=== PATIENT | female | born 1950 | race Caucasian/White ===

== ENCOUNTER 2017-12-02 11:22 | Emergency (ER) | payer OTHER, MEDICARE ==
[2017-12-02 11:26] VITALS: TEMP 36.4
[2017-12-02] MEDS ORDERED: HYDROCODONE/ACETAMIN 5/325MG TAB PO STA (11:50)
[2017-12-02] MEDS ORDERED: DVN80125 PO (12:18)
[2017-12-02] MEDS ORDERED: [UNRECOGNIZED DRUG - CODE] OPB (12:18)
[2017-12-02] MEDS ORDERED: [UNRECOGNIZED DRUG - CODE] OPB (12:18)
--- NOTE | 2017-12-02 12:39 | DIAGNOSTIC IMAGING REPORT ---
L SHOULDER MIN 2 VIEWS ROUTINE CLINICAL HISTORY: Left shoulder pain status post trauma COMPARISON: None. DISCUSSION: There is acute proximal humeral fracture with involvement of the greater tuberosity. There is no dislocation IMPRESSION: Acute fracture involving the greater tuberosity. Electronically signed by: Wu Tavarez M.D. 12/02/2017 12:38 PM Dictated Date/Time: 12/02/2017 12:37 PM
--- NOTE | 2017-12-02 12:40 | DIAGNOSTIC IMAGING REPORT ---
L HUMERUS MIN 2 VIEWS ROUTINE CLINICAL HISTORY: Left upper arm pain status post trauma COMPARISON: None. DISCUSSION: There is no dislocation. There is a longitudinal humeral head fracture with involvement of the greater tuberosity. IMPRESSION: Longitudinal humeral head fracture involving the greater tuberosity Electronically signed by: Wu Tavarez M.D. 12/02/2017 12:39 PM Dictated Date/Time: 12/02/2017 12:38 PM
--- NOTE | 2017-12-02 12:41 | DIAGNOSTIC IMAGING REPORT ---
L ELBOW MIN 3 VIEWS ROUTINE CLINICAL HISTORY: Left elbow pain status post trauma COMPARISON: None. DISCUSSION: The fat pads are not displaced. No fractures or dislocations are visualized. IMPRESSION: No fractures or dislocations are visualized. Electronically signed by: Wu Tavarez M.D. 12/02/2017 12:39 PM Dictated Date/Time: 12/02/2017 12:39 PM
--- NOTE | 2017-12-02 13:17 | EMERGENCY ROOM VISIT NOTE ---
ED Visit Note First contact with patient: 11:35 CHIEF COMPLAINT: Shoulder pain HISTORY OF PRESENT ILLNESS: This 67-year-old female patient presents to the emergency department by private vehicle complaining of pain in the left upper arm and shoulder after a fall earlier today. Patient states that she tripped on a curb, and fell around 10 AM this morning, onto her left arm and shoulder. She has had pain with movement of the arm, and there is limitation of motion of the arm because of the pain. The pain is moderate, constant and increases with motion of the hand and arm. The patient states the pain is throbbing and 9/10. The patient has taken no medications for relief of the pain. No previous significant previous shoulder disease or injury. No numbness or tingling. She denies any neck pain or back pain. No chest pain or shortness of breath. No abdominal pain or nausea/vomiting. No cough. Tetanus is up-to-date. She is right-hand dominant. She does not take any blood thinners. She denies hitting her head or loss of consciousness. She has abrasions to her left elbow and left hand, no active bleeding. She denies any pain in the elbow or wrist joints , all of the pain is in her left shoulder. REVIEW OF SYSTEMS: A 6 system review of systems was performed with positives and pertinent negatives in the HPI. ALLERGIES: Reviewed in chart. MEDICATIONS: Reviewed in chart. PMH: Hypertension SOCIAL HISTORY: Lives at home. Denies tobacco use. PHYSICAL EXAM: Vital Signs: Reviewed nurse's notes, vital signs stable. GENERAL : Pleasant and cooperative, in no acute distress, but appears to be in pain, well-developed, well-nourished. MUSCULOSKELETAL: There is no deformity in the contour of the left shoulder and there are no obdulia deformities noted. There is no sulcus sign. There is tenderness over the proximal humerus at the shoulder joints. The patient's range of motion is limited due to pain. Supraspinatus strength 5/5. There is no clavicle tenderness. No tenderness of the humerus, elbow, wrist, or hand. [employer] Guid[employer]ician strength 5/5. Radial pulse 2+. NECK: No tenderness to palpation over the cervical spine. Full range of motion without pain.. HEART : Regular rate and rhythm without murmurs gallops or rubs. LUNGS: Clear to auscultation bilaterally without wheezes, rales or rhonchi. No accessory muscle use. No retractions. NEURO: The patient is alert and oriented to person, place, and time. Normal sensation to light and sharp touch. Capillary refill less than 2 seconds. IMAGING: L HUMERUS MIN 2 VIEWS ROUTINE CLINICAL HISTORY: Left upper arm pain status post trauma COMPARISON: None. DISCUSSION: There is no dislocation. There is a longitudinal humeral head fracture with involvement of the greater tuberosity. IMPRESSION: Longitudinal humeral head fracture involving the greater tuberosity ----- L SHOULDER MIN 2 VIEWS ROUTINE CLINICAL HISTORY: Left shoulder pain status post trauma COMPARISON: None. DISCUSSION: There is acute proximal humeral fracture with involvement of the greater tuberosity. There is no dislocation IMPRESSION: Acute fracture involving the greater tuberosity. ----- L ELBOW MIN 3 VIEWS ROUTINE CLINICAL HISTORY: Left elbow pain status post trauma COMPARISON: None. DISCUSSION: The fat pads are not displaced. No fractures or dislocations are visualized. IMPRESSION: No fractures or dislocations are visualized. EMERGENCY DEPARTMENT COURSE: I examined the patient. Differential diagnosis includes contusion, abrasion, sprain/strain, fracture, dislocation, among others. Patient was given [place] for pain and an ice pack. An X-ray of the left elbow, humerus, and shoulder was reviewed by myself and radiologist and shows acute fracture of the humeral head. Patient was placed in an arm sling under my supervision, neurovascularly intact upon recheck. Patient states that her pain is improved after the [place], Rx for [place] was sent to pharmacy for further pain management at home. Patient was educated on continued care for her fracture, and was encouraged to follow-up with the orthopedic surgeon. She was also given strict return precautions should her symptoms worsen, she verbalized understanding. Patient was discharged home in stable condition and ambulatory. Patient was discussed with Dr. Sheppard, who agrees with my assessment and plan. Current/Historical Medications Scheduled Sodium Chloride Hypertonic (Sodium Chloride Opthalmic), 1 DROP OPB QID Sodium Chloride Hypertonic ([facility] Sodium Chloride), 1 DOSE OPB QPM Valsartan/Hctz (Diovan Hct), 1 TAB PO DAILY Scheduled PRN Hydrocodone/Acetaminophen 5MG/325MG ([place] 5MG/325MG), 1 TABLET PO Q4H PRN for svr Allergies Coded Allergies: Prednisone (Unverified Adverse Reaction, Mild, anxious, 12/02/17) pt said she "had to keep moving" when she took this medication. Vital Signs Date Time Temp Pulse Resp B/P (MAP) Pulse Ox O2 Delivery O2 Flow Rate FiO2 12/02/17 13:40 80 12 132/89 95 12/02/17 11:26 36.4 85 20 137/94 97 Room Air Medications Administered Medications (Trade) Dose Ordered Sig/Andrade Route Start Time Stop Time Status Last Admin Dose Admin Acetaminophen/ Hydrocodone Bitart ([place] 5/325 Tab) 1 tab NOW STAT PO 12/02/17 11:50 12/02/17 11:53 DC 12/02/17 12:03 1 TAB Departure Information Impression Primary Impression: Fracture of humeral head, left, closed Dispostion Home / Self-Care Condition GOOD Prescriptions Hydrocodone/Acetaminophen 5MG/325MG ([place] 5MG/325MG) Tab 1 TABLET PO Q4H Y for svr, #20 TAB For Initial Treatment Prov: Tessy Leyva, PULVERIZER 12/02/17 Referrals No Doctor, Assigned (PCP) Patient Instructions ED Fx Shoulder, [facility] Additional Instructions DISCHARGE INSTRUCTIONS & TREATMENT: You have been evaluated and treated in the emergency department for your left shoulder injury. X-ray shows fracture of your upper humeral head (part of the long arm bone that connects to the shoulder joint). You have been provided with discs of your x-rays, please take these with you to your follow-up appointment. Keep the arm in a sling until you have been cleared by orthopedics. You may apply ice to the shoulder intermittently and frequently over the next 48 hours to help reduce pain and swelling. You have been prescribed [place] to be taken as needed for SEVERE pain. This is a narcotic. Do not drive, operate machinery, or drink alcohol while you are taking this medication, as it may make you drowsy. This medication may cause constipation, you should take an [id number] stool softener while you are taking this medicine to help prevent this. You may also take Ibuprofen 600 mg and Tylenol 1000 mg every 8 hours if needed for pain. Do not take more than 3,000mg of Tylenol in 24 hours. Follow up with an orthopedic surgeon in the next 5-7 days for further management of your fracture. Call her PCP to get a referral to an orthopedic surgeon in your area. Please return to the emergency department if you develop sudden numbness, weakness, or discoloration of the arm, severe worsening pain, or any other concerns. Problem Qualifiers Primary Impression: Fracture of humeral head, left, closed Encounter type: initial encounter Qualified Codes: S42.292A - Other displaced fracture of upper end of left humerus, initial encounter for closed fracture
[2017-12-02] MEDS ORDERED: HYDR-5688 PO (13:29)
[2017-12-02 13:40] VITALS: BP 132/89; PULSE 80; O2SAT 95
== END 2017-12-02 13:42 | disposition home or self-care (01) ==
LOC: C.EDB 11:26 → C.EDD 13:42
DX: S42.292A Other displaced fracture of upper end of left humerus, initial encounter for closed fracture (principal); W19.XXXA Unspecified fall, initial encounter; I10 Essential (primary) hypertension